=== PATIENT | female | born 1965 | race Caucasian/White ===

== ENCOUNTER 2022-11-12 11:20 | Outpatient (CLI) | payer MEDICARE | END 2022-11-12 11:21 | disposition home or self-care (01) | LOC: SCSMRI 11:20 | PROVIDERS: ATTEND Neurological Surgery | DX: M51.16 Intervertebral disc disorders with radiculopathy, lumbar region (principal); M47.26 Other spondylosis with radiculopathy, lumbar region; M48.061 Spinal stenosis, lumbar region without neurogenic claudication; M47.12 Other spondylosis with myelopathy, cervical region; M48.07 Spinal stenosis, lumbosacral region; M48.02 Spinal stenosis, cervical region; M48.03 Spinal stenosis, cervicothoracic region; M40.50 Lordosis, unspecified, site unspecified; Z98.1 Arthrodesis status | CPT/HCPCS: 72040; 72141; 72148 ==